=== PATIENT | female | born 1950 | race Caucasian/White ===

== ENCOUNTER 2022-12-24 10:15 | Outpatient (RCR) | payer MEDICARE, SELFPAY ==
--- NOTE | 2022-10-18 12:17 | OPREHPOC ---
Outpatient Therapy Plan of Care This is a Multidisciplinary Plan of Care that may contain components documented by all disciplines (PT, OT, and ST.) PT Problem 1 PT Problem #1 Knowledge Deficit PT Goal 1 Goal Independent with home postural exercises Target Visit 8 PT Problem 2 PT Problem #2 Pain PT Goal 1 Goal Reports 0/10 pain with waking in the morning Target Visit 12 PT Problem 3 PT Problem #3 Impaired Range of Motion PT Goal 1 Goal Demonstrate 55+ degrees of cervical rotation to improve functional field of view and reduce pain with ADLs Target Visit 12 PT Goal 2 Goal Improve cervical flexion by 10 degrees indicating reduced cervical muscle restriction PT Problem 4 PT Problem #4 Impaired Strength PT Goal 1 Goal Improve L shoulder ER strength to 4/5 to improve shoulder girdle stability to reduce strain on left cervical junction
--- NOTE | 2022-10-18 12:17 | PTOPEVAL1 ---
Assessment and note entered by Israel Rader, PT Evaluation Information Assessment Status Evaluation Diagnosis Neck Pain Onset 10/19/19 Subjective Information Reports that she has history of cervical OA. She had CT done which showed this. The pain is in her neck but also gets radiating pain into both arms. She has been taking celebrex and flexoril. She has been having a lot of trouble sleeping and at night time she seems to have most of her trouble. She is very active and is an avid golfer. She is always better when active but gets pain at rest after being active. Reports that she has a lot of trouble looking and reaching to the left. Reported Pain Level Pain Score 0: Self Report Assessment PT Clinical Summary Patient presents with signs and symptoms of cervical OA and decreased functional cervical mobility especially with activity requiring left visual field. She has base cervical and thoracic postural deficits and weakness noted in mable rotator cuff greater on left side. She will benefit from skilled therapy to address these deficits to improve gross functional mobility and posture for pain free ADL performance. Plan of Care Interventions Hot Pack/Cold Pack,Manual Therapy,Mechanical Traction,Neuro Re-education,Therapeutic Activities ,Therapeutic Exercise PT Services Indicated Yes Treatment Frequency and 2x/week for 6 weeks Duration These treatments will address the objective and functional deficits as defined above. The patient will be advanced safely and appropriately in order for the patient to progress towards his/her prior level of function. Additional exercises will be introduced and as well as a comprehensive home exercise program upon discharge, if needed, ?to ensure carryover of functional gains achieved in the clinic. This treatment plan has been reviewed and agreement upon by the patient.
--- NOTE | 2022-11-07 11:32 | PCPTNOTE ---
Patient was called 15 minutes after appointment set to start. Appt cancelled this date due to pt forgetting she had an appointment. Well attempt to reschedule within the week if openings become available.
--- NOTE | 2022-11-26 16:12 | OPREHPOC ---
Outpatient Therapy Plan of Care This is a Multidisciplinary Plan of Care that may contain components documented by all disciplines (PT, OT, and ST.) PT Problem 1 PT Problem #1 Knowledge Deficit PT Goal 1 Goal Independent with home postural exercises Target Visit 8 Progress Met PT Problem 2 PT Problem #2 Pain PT Goal 1 Goal Reports 0/10 pain with waking in the morning Target Visit 12 Progress Partially Met Comment Improved but still present. 2/10 at best. PT Problem 3 PT Problem #3 Impaired Range of Motion PT Goal 1 Goal Demonstrate 55+ degrees of cervical rotation to improve functional field of view and reduce pain with ADLs Target Visit 12 Progress Met PT Goal 2 Goal Improve cervical flexion by 10 degrees indicating reduced cervical muscle restriction Progress Partially Met Comment Improved but still lacking PT Problem 4 PT Problem #4 Impaired Strength PT Goal 1 Goal Improve L shoulder ER strength to 4/5 to improve shoulder girdle stability to reduce strain on left cervical junction Target Visit 8 Progress Partially Met Comment Improved but still showing weakness with functional reach and lifting.
--- NOTE | 2022-11-26 16:13 | PTOPPROG ---
Assessment and note entered by Israel Rader, PT Evaluation Information Assessment Status Progress Diagnosis Neck Pain Onset 10/19/19 Subjective Information Reports that she is still having pain but is not having the extreme pain in neck and shoulder for the last 10 days. She for a long time could not look to her left and that is significantly improved at this time. Assessment PT Clinical Summary Patient has seen great functional and objective improvement but still lacking full functional potential mobility in neck and strength in shoulder girdle. Will continue to benefit from skilled therapy to address these deficits. Plan of Care Interventions Hot Pack/Cold Pack,Manual Therapy,Mechanical Traction,Neuro Re-education,Therapeutic Activities ,Therapeutic Exercise PT Services Indicated Yes Treatment Frequency and 2x/week for 6 weeks Duration These treatments will address the objective and functional deficits as defined above. The patient will be advanced safely and appropriately in order for the patient to progress towards his/her prior level of function. Additional exercises will be introduced and as well as a comprehensive home exercise program upon discharge, if needed, ?to ensure carryover of functional gains achieved in the clinic. This treatment plan has been reviewed and agreement upon by the patient.
--- NOTE | 2022-11-26 16:13 | PTOPPROG ---
Assessment and note entered by Israel Rader, PT Evaluation Information Assessment Status Progress Diagnosis Neck Pain Onset 10/19/19 Subjective Information Reports that she is still having pain but is not having the extreme pain in neck and shoulder for the last 10 days. She for a long time could not look to her left and that is significantly improved at this time. Assessment PT Clinical Summary Patient has seen great functional and objective improvement but still lacking full functional potential mobility in neck and strength in shoulder girdle. Will continue to benefit from skilled therapy to address these deficits. Plan of Care Interventions Hot Pack/Cold Pack,Manual Therapy,Mechanical Traction,Neuro Re-education,Therapeutic Activities ,Therapeutic Exercise PT Services Indicated Yes Treatment Frequency and 1x/week for 4 weeks Duration These treatments will address the objective and functional deficits as defined above. The patient will be advanced safely and appropriately in order for the patient to progress towards his/her prior level of function. Additional exercises will be introduced and as well as a comprehensive home exercise program upon discharge, if needed, ?to ensure carryover of functional gains achieved in the clinic. This treatment plan has been reviewed and agreement upon by the patient.
--- NOTE | 2022-12-24 11:03 | PTOPDC ---
Assessment and note entered by Israel Rader, PT Evaluation Information Assessment Status Discharge Diagnosis Neck Pain Onset 10/19/19 Subjective Information Reports that the combination of traction and therapy has significantly improved her pain and function. No concerns at this time with discharge and HEP. Reported Pain Level Pain Score 1: Self Report Assessment PT Clinical Summary Patient has met all goals for therapy at this time and is suitable for discharge to [facility]. Has near all full functional motion with the exception of sidebending. Plan of Care PT Services Indicated No
== END 2022-12-24 11:51 | disposition home or self-care (01) ==
LOC: ANHGOSHPT 10:15
PROVIDERS: PCP Internal Medicine; Visit Provider Neurological Surgery
DX: M54.2 Cervicalgia (principal)
CPT/HCPCS: 97012; 97110; 97112; 97140; 97161